=== PATIENT | female | born 1985 | race Caucasian/White ===

== ENCOUNTER 2020-11-01 19:22 | Emergency (ER) | payer OTHER, SELFPAY ==
--- NOTE | 2020-11-01 19:29 | ED_ITS ---
HPI - Overdose General Chief Complaint: Altered Mental Status Stated Complaint: OD Time Seen by Provider: 11/01/20 19:29 Source: patient Mode of arrival: ambulatory Limitations: no limitations History of Present Illness HPI Narrative: Patient with history of substance abuse uses cocaine and heroin used 8 bags of heroin her boyfriend started patient is overdosed so he give Narcan patient came to the ER because of leg cramps and wakes feeling very anxious patient denies any depression or suicidal ideation MD complaint: accidental overdose Related Data Allergies Allergy/AdvReac Type Severity Reaction Status Date / Time cat dander [CAT] Allergy Intermediate SNEEZING/RED Unverified 03/24/20 16:50 FACE hydrocodone [HYDROCODONE] Allergy Unknown ITCHING Unverified 03/24/20 16:50 Review of Systems Review of Systems: Yes all other systems are reviewed and are negative [facility] Social History Social History Advance Directives: No Physical Exam Vital Signs: Vital Signs: Last Vital Signs Temp 97.8 F 11/01/20 20:11 Pulse 75 11/01/20 20:11 Resp 16 11/01/20 20:11 BP 125/79 11/01/20 20:11 Pulse Ox 100 11/01/20 20:11 Body Mass Index 24.2 Appearance: Alert. Oriented X3. No acute distress. Anxious Eyes: PERRLA, No Nystagmus ENT: Pharynx normal. Oral Mucosa moist Neck: Normal inspection. Neck supple. CVS: Normal heart rate and rhythm. Pulses normal. Respiratory: No respiratory distress. Equal air entry bilateral, no wheezing/rales/rhonchi Abdomen: Soft and nontender. Bowel sounds are present, no mass palpable, Skin: Skin warm and dry. Normal skin color. Normal skin turgor. Extremities: No lower extremity edema. No calf tenderness Neuro: Oriented X 3. No motor deficit. No sensory deficit.No cerebellar signs , cranial nerves II-XII intact MDM - Overdose MDM Narrative Medical decision making narrative: Patient history of substance abuse post Narcan came for narcotic withdrawal symptoms with anxiety and muscle cramps and nausea. Patient received Ativan feeling better sleeping now does not want any detox will discharge her home Discharge Plan Discharge Clinical Impression: Opiate dependence Qualifiers: Substance use status: uncomplicated Qualified Code(s): F11.20 - Opioid dependence, uncomplicated Patient Disposition: Home, Self-Care Instructions: Opioid Use Disorder (ED) Additional Instructions: Stop using heroin follow up with detox
[2020-11-01 20:11] VITALS: BP 125/79; PULSE 75; RESP 16; TEMP 36.6; O2SAT 100; BMI 24.2
--- NOTE | 2020-11-01 20:23 | MHC.RECOVSUP ---
? Reason for consult Support o Current location: ED17H o Identified substance use concern: Heroin - Overdose - Withdrawal ? Intervention: ? Plan: ? Additional information: Patient is not giving much information.. But was able to get some info.. Patient stated that c/o thought that the patient was overdosing and administered narcan. and is going through withdraw.. Stating that all she wants right now are more drugs.. Doctor had order Ativan to help with patient high level of anxiety.. so hopefully patient can give more information to help patient.
--- NOTE | 2020-11-01 22:43 | PC.NURSE ---
UPON ARRIVAL PT LYING PRONE IN BED HAVING OCCASIONAL LE SPASMS. PT WOULD NOT SPEAK WITH THIS RN, PER FINISHED CIGAR MAKER HE BRIEFLY SPOKE TO HER AND SHE SAID HER S/O THOUGHT SHE WAS OVERDOSING AND GAVE HER NARCAN. PT IN NAD, RR EVEN UNLABORED, SKIN WPD. PT HAS BEEN SLEEPING SINCE JUST AFTER ARRIVAL, DID AMBULATE TO BR ONCE W/ EVEN STEADY GAIT.
--- NOTE | 2020-11-02 04:47 | PC.NURSE ---
Pt aware of pending discharge, asking this RN to call [facility] for a ride [phone]. Per [facility], ETA 15 minutes.
[2020-11-02 04:55] VITALS: BP 93/44; PULSE 60; RESP 16; O2SAT 98
== END 2020-11-02 04:56 | disposition home or self-care (01) ==
PROVIDERS: Emergency Provider Internal Medicine
DX: T40.5X1A Poisoning by cocaine, accidental (unintentional), initial encounter (principal); T40.1X1A Poisoning by heroin, accidental (unintentional), initial encounter; Y92.9 Unspecified place or not applicable; F41.9 Anxiety disorder, unspecified; F11.23 Opioid dependence with withdrawal; R25.2 Cramp and spasm
CPT/HCPCS: 96372; 99284; 99285